=== PATIENT | male | born 1950 | race African-American/Black ===

== ENCOUNTER 2017-11-14 10:45 | Emergency (ER) | payer OTHER ==
[~2017-11-14] VITALS: Ht 177.8 cm; Wt 97.1 kg
[~2017-11-14 10:45] MED LIST: AMLODIPINE10 MG PO; ASPIRIN81 M1 PO; CYCLOBENZAPRINE5 M2 PO; FERROUS SULFAT325 M3 PO; LISINOPRIL HCTZ1 TAB PO; METFORMIN1000 MG PO; METOPROLOL SUCC50 M1 PO; NAPROXEN250 M1 PO; OMEPRAZOLE20 M2 PO; PERCOCET 325 MG1 TA2 PO; PROTONIX 40MG T40 MG PO; SENNA CON/DOCUS1 TAB PO; SENOKOT8.6 M1 PO; SIMVASTATIN20 M1 PO
[2017-11-14 11:23] LABS: ABSOLUTE BASOPHIL COUNT 0 /CUMM (0.0-0.2); ABSOLUTE EOSINOPHIL COUNT 0.5 /CUMM (0.0-0.7); ABSOLUTE LYMPH COUNT 1.8 /CUMM (1.2-3.4); ABSOLUTE MONOCYTE COUNT 0.7 /CUMM (0.10-0.60); BASOPHIL % 0.3 % (0.0-2.0); EOSINOPHIL % 6.5 % (0-5); GRANULOCYTE % 57.5 % (42.2-75.2); MEAN CORPUSCULAR HGB CONC 33.2 G/DL (33.0-37.0); MEAN CORPUSCULAR VOLUME 78.5 FL (80.0-94.0); MEAN PLATELET VOLUME 7.2 FL (7.4-10.4); PLATELET COUNT 342 /CUMM (130-400); RED BLOOD CELL CT 4.46 /CUMM (4.70-6.10)
--- NOTE | 2017-11-14 12:19 | ED EYE COMPLAINT ---
History of Present Illness General Chief Complaint: Eye Problems Stated Complaint: R EYE PAIN Source: patient Exam Limitations: no limitations Vital Signs & Intake/Output Vital Signs & Intake/Output Vital Signs Date Time Temp Pulse Resp B/P B/P Pulse O2 O2 Flow FiO2 Mean Ox Delivery Rate 11/14 1328 75 18 168/83 99 Room Air 11/14 1103 97.7 92 18 164/84 98 Room Air Room Air Allergies Coded Allergies: NO KNOWN ALLERGIES (NONE 11/14/17) Triage Note: PT TO ED WITH C/O RASH TO UPPER LIP AND RIGHT EYE SWELLING, WITH CLEAR DRAINAGE. PT DENIES INJURY OR NEW MEDS/EYE DROPS OR CONTACTS. Triage Nurses Notes Reviewed? yes Onset: Abrupt Duration: day(s): (3), constant, continues in ED, getting worse Timing: single episode today Injury Environment: home Severity: mild, moderate No Modifying Factors: none Right Eye Associated Symptoms: orbital swelling HPI: 67-year-old male history of hypertension, hyperlipidemia, diabetes presents for evaluation of right-sided periorbital swelling. Patient states symptoms started about 3 days ago and have been persistent. He also reports that there now appears to be some swelling on the left side as well. There is no trauma or known triggering event. He's never had this before. He denies any eye pain or pain in the area and no redness. He does report some increased tearing but no purulent discharge. No changes in vision no fevers no pain with extraocular motion. No chest pain shortness of breath lower extremity edema, coughing history of CHF. He does not wear glasses or contacts. He does see an eye doctor yearly related to his diabetes and high blood pressure. (Nito SIERRA,Salvador) Reconcile Medications Amlodipine Besylate (Amlodipine) 10 MG TAB 1 TAB PO DAILY HEART (Reported) Amoxicillin/Potassium Clav (Augmentin 875-125 Tablet) 875 MG-125 MG TABLET 1 TAB PO BID PERIORBITAL CELLULITIS Aspirin 81 MG CTB 1 TAB PO DAILY HEART HEALTH (Reported) Ferrous Sulfate 325 MG TABLET 1 TAB PO BID SUPPLEMENT (Reported) LISINOPRIL/HYDROCHLOROTHIAZIDE (Lisinopril-Hctz 20-25 MG Tab) 1 TAB TAB 1 TAB PO DAILY HEART (Reported) Losartan/Hydrochlorothiazide (Losartan-Hctz 100-25 MG Tab) 100 MG-25 MG TABLET 1 TAB PO DAILY htn METFORMIN HCL (Metformin) 1,000 MG TAB 1 TAB PO DAILY DIABETES (Reported) Metoprolol Succinate (Metoprolol Succinate XL) [address] 1 TAB PO DAILY HEART (Reported) Moxifloxacin Hydrochloride (Vigamox) 0.5 % DROPS 1 GTT OPH TID CONJUNCTIVITIS Omeprazole 20 MG CAPSULE.DR 1 CAP PO DAILY GI (Reported) Prednisone 50 MG TABLET 1 TAB PO DAILY allergic reaction Simvastatin 20 MG TAB 1 TAB PO DAILY CHOLESTEROL (Reported) (Willi SEVERINO,Robi Castaneda) Past History Travel History Traveled to [place] past 21 day No Medical History Any Pertinent Medical History? see below for history Neurological: NONE EENT: NONE Cardiovascular: hypertension, hyperlipidemia Respiratory: NONE Gastrointestinal: NONE Hepatic: NONE Renal: NONE Musculoskeletal: NONE Psychiatric: NONE Endocrine: diabetes Blood Disorders: anemia Cancer(s): PROSTATE CANCER Other Medical Hx: hypertension, hyperlipidemia and diabetes type 2 Past medical history, surgical history, medications, allergies, social history, family history and review of systems are reviewed above, detailed elsewhere in this consult note, or covered in the Medical Service Admission History and Physical report. Refer elsewhere in this and other documents for additional details. There is no other information in these categories that I am aware of which is directly or significantly indirectly pertinent to the patient's musculoskeletal and orthopaedic care, treatment, consultation recommendations, or (if further invasive treatments are ultimately recommended) his preoperative evaluation, operative treatment, perioperative care, or postoperative recovery. According to the patient's report he was asymptomatic and functionally unrestricted by his right lower extremity prior to this injury. He did have some general functional exertional tolerance limitations and restrictions because of his other medical conditions. Refer to other inpatient and outpatient medical records for details regarding pre-injury functional status and deficits. Tetanus Vaccine: 05/24/15 Surgical History Surgical History: non-contributory, No history reported of prior surgery or significant injury to the right foot or right lower extremity regions. Psychosocial History What is your primary language German Tobacco Use: Current Daily Use Daily Tobacco Use Amount/Type: => 5 Cigarettes daily ETOH Use: occasional use Illicit Drug Use: denies illicit drug use Family History Family History, If Any: SISTER FH: diabetes mellitus BROTHER Internal cardiac defibrillator Hx Contributory? No (Salvador Draper) Review of Systems Review of Systems Constitutional: Reports: no symptoms. Eyes: Reports: see HPI, inflammation, other (swelling). Ear: Reports: no symptoms. Nose: Reports: no symptoms. Mouth: Reports: no symptoms. Throat: Reports: no symptoms. Respiratory: Reports: no symptoms. Cardiovascular: Reports: no symptoms. GI: Reports: no symptoms. Genitourinary: Reports: no symptoms. Musculoskeletal: Reports: no symptoms. Skin: Reports: no symptoms. Neurological/Psychological: Reports: no symptoms. Hematologic/Endocrine: Reports: no symptoms. Immunologic/Allergic: Reports: no symptoms. All Other Systems: Reviewed and Negative (Salvador Draper) Physical Exam General Appearance: well developed/nourished, no apparent distress, alert, awake General Inspection: periorbital swelling (mild) Eyelid: normal inspection, everted for exam Conjunctiva/Sclera: normal inspection Cornea: normal inspection EOM: intact Pupil: normal accommodation, normal pupil, PERRL Anterior Chamber: normal inspection General Inspection: periorbital swelling Eyelid: normal inspection, everted for exam Conjunctiva/Sclera: normal inspection Cornea: normal inspection EOM: intact Pupil: normal accommodation, normal pupil, PERRL Anterior Chamber: normal inspection Posterior Segments: normal funduscopic Eye Right 1) Edema Physical Exam Head: atraumatic, normal appearance Ears: Bilateral: canal normal, Tympanic normal. Nose: normal inspection Mouth/Throat: normal mouth inspection, pharynx normal Neck: normal inspection, supple, full range of motion Cardiovascular/Respiratory: normal breath sounds, normal peripheral pulses, regular rate/rhythm, no respiratory distress Neurologic/Psych: no motor/sensory deficits, awake, alert, oriented x 3, normal gait, normal mood/affect Skin: intact, normal color, warm/dry Comments: No lower extremity edema no JVD lungs clear to auscultation (Salvador Draper) Progress Differential Diagnosis: corneal abrasion, corneal foreign body, conjunctivitis, orbital cellulitis, periorbital cellulitis, blepharitis Plan of Care: Orders Procedure Date/time Status ED- VISUAL ACUITY 11/14 1223 Active COMPREHENSIVE METABOLIC PANEL 11/14 1109 Complete CBC WITHOUT DIFFERENTIAL 11/14 1109 Complete Laboratory Tests 11/14/17 1117: Anion Gap 12, Estimated GFR > 60, BUN/Creatinine Ratio 11.3, Glucose 197 H, Calcium 11.0 H, Total Bilirubin 0.2, AST 27, ALT 35, Alkaline Phosphatase 76, Total Protein 7.3, Albumin 4.0, Globulin 3.3, Albumin/Globulin Ratio 1.2, CBC w Diff NO MAN DIFF REQ, RBC 4.46 L, MCV 78.5 L, MCH 26.0 L, MCHC 33.2, RDW 19.0 H, MPV 7.2 L, Gran % 57.5, Lymphocytes % 26.1, Monocytes % 9.6 H, Eosinophils % 6.5 H, Basophils % 0.3, Absolute Granulocytes 4.0, Absolute Lymphocytes 1.8, Absolute Monocytes 0.7 H, Absolute Eosinophils 0.5, Absolute Basophils 0 Patient seen and evaluated. He is here with right periorbital swelling. He has no pain no changes in vision visual acuity is 2019 left 2024 right. No visible redness is noted on the exam over patient has dark skin and making it difficult to completely evaluate. Blood work was obtained does not show any acute findings negative white count. No fever. Exam of the eye shows right-sided periorbital edema mild left-sided periorbital edema. There is no conjunctival injection. There is some clear discharge coming from the right eye. No purulence. CT scan of the orbits do show the bilateral periorbital edema which could represent a periorbital cellulitis. Patient was given a dose of Unasyn in the emergency department. He'll be discharged home on Augmentin and Vigamox. Advised to apply warm compresses Tylenol as needed for pain. Follow-up in 2 days for recheck. He should also follow-up with his eye doctor. Discussed return precautions in detail case discussed with Dr. Márquez he agrees. Diagnostic Imaging: Viewed by Me: CT Scan. Discussed w/RAD: CT Scan. Radiology Impression: PATIENT: MARY JEAN PRESENT AGE: 67 PATIENT ACCOUNT NO: [id number] : 50 LOCATION: [facility] ORDERING PHYSICIAN: Tom SIERRA SERVICE DATE: 11/14/17 EXAM TYPE: CAT - CT ORBITS W IV CONTRAST EXAMINATION: CT ORBIT WITH CONTRAST CLINICAL INFORMATION: Right periorbital swelling. COMPARISON: CT head 07/25/2014. TECHNIQUE: Public Health Training Assistant images were obtained. CT acquisition of the orbits was performed after the intravenous administration of contrast. Data was reformatted into multiplanar images at the acquisition workstation. A total of 95 mL on Optiray 320 was utilized for this examination. No adverse contrast reaction was reported. DLP: 262.56 mGy-cm FINDINGS: There is nonspecific swelling of the preseptal soft tissues bilaterally, slightly greater on the right. There is no discrete drainable fluid collection. No abnormal retrobulbar mass or inflammatory changes. Globes are symmetric. Lamina papyracea and orbital floors are intact. Extraocular muscles are symmetric. Orbital apices are unremarkable. Paranasal sinuses are well aerated with the exception of a retention cyst within the sphenoid sinus. Major paranasal sinus drainage pathways are patent. No nasal septal deviation. Limited visualization of the intracranial structures reveals no abnormal finding. There is no mastoid or middle ear effusion. The temporomandibular joints are symmetric. IMPRESSION: There is nonspecific swelling of the preseptal soft tissues on both sides, slightly greater on the right. Findings may represent a manifestation of edema or cellulitis. No post septal inflammation. No drainable fluid collection. DICTATED BY: Bhargav SEVERINO, Ramin Swenson DATE/TIME DICTATED:11/14/171315 CRACKER DOUGH MIXER:YOANNA DATE/ TIME TRANSCRIBED:11/14/171315 CONFIDENTIAL, DO NOT COPY WITHOUT APPROPRIATE AUTHORIZATION. (Nito SIERRA,Salvador) Departure Departure Disposition: HOME OR SELF CARE Condition: Stable Clinical Impression Primary Impression: Periorbital cellulitis of right eye Referrals: Annette SEVERINO,Jaqueline Vasquez (PCP/Family) Additional Instructions: Take oral antibiotics as directed for the full course. Apply topical antibiotics to both eyes for the full course. Apply warm compresses for 15-20 minutes every few hours. Tylenol for pain. Follow-up either in the emergency department or with your eye doctor in 2 days for recheck. If you have worsening swelling pain with movement of the eye spreading redness fever or any other concerns return immediately. Please go over all results of today's visit with your primary care doctor. Contact your primary care doctor to let them know you were here in the emergency room. There may be nonspecific findings which may not be related to your visit today here in the emergency room but may require further evaluation and chronic monitoring by your primary care doctor. If you had a laceration today the chance of foreign body always remains. You should follow-up with your primary care doctor for recheck in 3-5 days for a wound check. If you had an x-ray done there is a chance that a fracture could have been missed on initial read and you should follow-up with your primary care doctor for repeat x-rays if symptoms persist. If your blood pressure was elevated here in the emergency room please have rechecked by her primary care doctor within the next 48 hours by your primary care doctor. If you were prescribed a narcotic here in the emergency room or any type of controlled substances you're not allowed to drive while taking this medication or operate any type of heavy machinery. Narcotics can make you feel lightheaded dizziness nausea and can cause constipation. You may need to waste picker a stool softener. Thank you for choosing [facility] emergency room. Please return to the emergency room immediately if you have any other concerns worsening of symptoms. Departure Forms: Customer Survey General Discharge Information Prescriptions: Current Visit Scripts Moxifloxacin Hydrochloride (Vigamox) 1 GTT OPH TID #3 ML Amoxicillin/Potassium Clav (Augmentin 875-125 Tablet) 1 TAB PO BID #20 TAB (Salvador Draper) PA/STATE EDITOR Co-Sign Statement Statement: ED Attending supervision documentation- [X] I saw and evaluated the patient. I have also reviewed all the pertinent lab results and diagnostic results. I agree with the findings and the plan of care as documented in the PA's/STATE EDITOR's documentation. [X] I have reviewed the ED Record and agree with the PA's/STATE EDITOR's documentation. [] Additions or exceptions (if any) to the PAs/STATE EDITOR's note and plan are summarized below: [] (Willi SEVERINO,Robi Castaneda)
--- NOTE | 2017-11-14 13:28 | CT SCAN REPORT ---
EXAMINATION: CT ORBIT WITH CONTRAST CLINICAL INFORMATION: Right periorbital swelling. COMPARISON: CT head 07/25/2014. TECHNIQUE: Land Leveler images were obtained. CT acquisition of the orbits was performed after the intravenous administration of contrast. Data was reformatted into multiplanar images at the acquisition workstation. A total of 95 mL on Optiray 320 was utilized for this examination. No adverse contrast reaction was reported. DLP: 262.56 mGy-cm FINDINGS: There is nonspecific swelling of the preseptal soft tissues bilaterally, slightly greater on the right. There is no discrete drainable fluid collection. No abnormal retrobulbar mass or inflammatory changes. Globes are symmetric. Lamina papyracea and orbital floors are intact. Extraocular muscles are symmetric. Orbital apices are unremarkable. Paranasal sinuses are well aerated with the exception of a retention cyst within the sphenoid sinus. Major paranasal sinus drainage pathways are patent. No nasal septal deviation. Limited visualization of the intracranial structures reveals no abnormal finding. There is no mastoid or middle ear effusion. The temporomandibular joints are symmetric. IMPRESSION: There is nonspecific swelling of the preseptal soft tissues on both sides, slightly greater on the right. Findings may represent a manifestation of edema or cellulitis. No post septal inflammation. No drainable fluid collection.
[2017-11-14] MEDS ORDERED: AUGMENTIN 875-1 EACH PO (14:40)
[2017-11-14] MEDS ORDERED: VIGAMOX3 ML OPH (14:40)
[2017-11-14 15:16] VITALS: BP 166/90
[2017-11-16] MEDS ORDERED: PREDNISONE50 M1 PO (14:34)
[2017-11-16] MEDS ORDERED: LOSARTAN-HCTZ1 EAC2 PO (14:34)
== END 2017-11-14 15:13 ==
LOC: ERH 10:45
PROVIDERS: Physician Assistant
DX: H05.011 Cellulitis of right orbit (principal)
CPT/HCPCS: 96374